=== PATIENT | female | born 1950 | race Caucasian/White ===

== ENCOUNTER → 2019-01-26 | Outpatient (CLI) | payer MEDICARE, OTHER ==
[~2019-01-26] MED LIST: ACYCLOVIR PO; CET10 PO; ESTR-26 PO; MELO-149 PO; VALS-25 PO
--- NOTE | 2019-01-26 09:53 | RADIOLOGY IMAGING REPORT ---
FACILITY: [facility] - [place], [place] PATIENT NAME: Yamileth Craft : 1950 MR: [id number] V: [id number] EXAM DATE: ORDERING PHYSICIAN: TANIA CALIX TECHNOLOGIST: Location: [facility] - [place] Patient: Yamileth Craft : 1950 Visit/Account:[id number] Date of Sevice: 01/26/2019 TRANSVAGINAL NON-OB HISTORY: 15 years postmenopausal bleeding x1 month TECHNIQUE: Transvaginal ultrasound pelvis. COMPARISON: None. FINDINGS: Uterus: ; 8 cm length x 3.8 cm AP x 4.7 cm transverse. Myometrium: There is a subserosal fibroid along the anterior aspect uterine fundus measuring 2.1 x 2. 5 x 2.8 cm. Endometrium: Endometrium is thickened and heterogeneous; double thickness 8.2 mm. Cervix: There is fluid noted within the cervix with thickening of the endocervical lining. Also note d is a 4.3 x 2.5 x 1.7 mm irregular echogenic structure within the endocervical canal. Ovaries: Right - not seen Left - not seen Adnexa: Grossly unremarkable. Free pelvic fluid: There is a trace amount of free fluid in the pelvic cul-de-sac. IMPRESSION: There is a 2.8 cm subserosal fibroid along the anterior aspect uterine fundus Endometrium is heterogeneous and thickened at 8.2 mm Fluid is noted within the endocervical canal with thickening of the endocervical lining. Also noted is a 4.3 x 2.5 x 1.7 mm irregular echogenic structure within the endocervical canal. This could repr esent a polyp, hemorrhagic components or other mass lesion. Neither ovary visualized Report Dictated By: Kita Jones MD at 01/26/2019 9:44 AM Report E-Signed By: Kita Jones MD at 01/26/2019 9:49 AM WSN:[id number]
== END ==
LOC: US 08:37
PROVIDERS: ATTEND Physician Assistant
DX: N94.89 Other specified conditions associated with female genital organs and menstrual cycle (principal); N95.1 Menopausal and female climacteric states; N95.0 Postmenopausal bleeding
CPT/HCPCS: 36415; 76830; 82670; 83001; 84403

== ENCOUNTER → 2019-06-02 | Outpatient (CLI) | payer MEDICARE, OTHER | LOC: LAB 10:54 | PROVIDERS: ATTEND Physician Assistant | DX: N95.1 Menopausal and female climacteric states (principal); N95.0 Postmenopausal bleeding | CPT/HCPCS: 36415; 82670; 84144; 84403 ==